=== PATIENT | male | born 1935 | race Caucasian/White ===

== ENCOUNTER → 2017-04-18 | Outpatient (CLI) | payer MEDICARE, OTHER ==
[~2017-04-18] MED LIST: ASPI1TAB57 PO; BENA25CA4 PO; BENZ100 PO; CELE100C PO; DOCU100C15 PO; GABA300C5 PO; HYDR-3111 PO; PROS5TAB PO; PROT40TA PO; ROBA500T PO; ROSU20 PO; TRAM50 PO; TRAZ100T10 PO; ZOLP5TAB3 PO
[2017-04-18 08:51] LABS: HEMATOCRIT 38.7 % (39.0-51.0); HEMOGLOBIN 13.2 GM/DL (13.0-17.0); MEAN CELL VOLUME 89.8 FL (80.0-100.0); MEAN CORPUSCULAR HEMOGLOBIN 30.6 PG (27.0-34.0); MEAN CORPUSCULAR HGB CONC 34.1 % (32.0-36.0); MEAN PLATELET VOLUME 6.9 FL (7.0-11.0); PLATELET COUNT 170 TH/MM3 (150-450); RED BLOOD COUNT 4.31 MIL/MM3 (4.50-5.90); RED CELL DISTRIBUTION WIDTH 14.4 % (11.6-17.2); WHITE BLOOD COUNT 4.7 TH/MM3 (4.0-11.0)
[2017-04-18 09:03] LABS: INTERNATIONAL NORMALIZED RATIO 1.1 RATIO; PROTHROMBIN TIME - PATIENT 11.3 SEC (9.8-11.6)
[2017-04-18 09:10] LABS: BILIRUBIN, URINE NEG (NEG); BLOOD, URINE NEG (NEG); GLUCOSE,URINE NEG (NEG); KETONE, URINE NEG (NEG); MUCUS URINE FEW /lpf (OCC); NITRITE,URINE NEG (NEG); URINE COLOR YELLOW (YELLW/STRAW); URINE LEUKOCYTE ESTERASE NEG (NEG)
[2017-04-18 09:12] LABS: CALCIUM 9.6 MG/DL (8.5-10.1); CREATININE 0.83 MG/DL (0.60-1.30)
--- NOTE | 2017-04-18 13:59 | EKG ---
Date Performed: 04/18/2017 Time Performed: 08:37:14 PTAGE: 81 years EKG: SINUS BRADYCARDIA MARKED LEFT AXIS DEVIATION PATTERN CONSISTENT WITH PULMONARY DISEASE ABNO RMAL ECG NO PREVIOUS TRACING 04/18/2017 0837 DOCTOR: Lakshmi Mendoza Interpretating Date/Time 04/18/2017 13:58:38
== END ==
LOC: CPRE 08:09
PROVIDERS: ATTEND Orthopaedic Surgery
DX: Z01.812 Encounter for preprocedural laboratory examination (principal); Z01.810 Encounter for preprocedural cardiovascular examination; M17.12 Unilateral primary osteoarthritis, left knee; M79.609 Pain in unspecified limb; R94.31 Abnormal electrocardiogram [ECG] [EKG]; Z96.652 Presence of left artificial knee joint
CPT/HCPCS: 36415; 80048; 81001; 85027; 85610; 85730; 93005

== ENCOUNTER 2017-05-05 05:49 | Day surgery (SDC) | payer MEDICARE, OTHER ==
[~2017-05-05] VITALS: Ht 175.3 cm; Wt 81.3 kg
[2017-05-05] MEDS ORDERED: FAT EMULSION 20% INJ 0 ML ONE (06:00)
[2017-05-05] MEDS ORDERED: ceFAZolin 2 GM PREMIX 0 ML ONE (06:06)
[2017-05-05] MEDS ORDERED: GENTAMICIN SULFATE 80 MG/2 ML VIAL ONE (06:06)
[2017-05-05] MEDS ORDERED: POVIDONE IODINE 5% (ANTISEPSIS KIT) 4 APPLICATIONS EACH NARE PRN (06:15)
[2017-05-05] MEDS ORDERED: CHLORHEXIDINE GLUCONATE 2 % 1 PACK (2 CLOTHS) TOPICAL PRN (06:15)
[2017-05-05] MEDS ORDERED: SODIUM CHLORID 0.9% 500 ML IV PRN (06:15)
[2017-05-05] MEDS ORDERED: LACTATED RINGER'S 1000 ML IV PRN (06:15)
[2017-05-05] MEDS ORDERED: VANCOMYCIN 1000 MG/NS 250 ML (for <70 kg) IV SCH ×2 (06:30)
[2017-05-05] MEDS ORDERED: CHLORHEXIDINE GLUCONATE 4% SOLN 120 ML BTL TOPICAL SCH (06:30)
[2017-05-05] MEDS ORDERED: ceFAZolin 2 GM PREMIX 50 ML IV SCH (06:30)
[2017-05-05] MEDS ORDERED: EXPAREL PERI-ARTICULAR INJECTION (TOTAL VOL. 100 ML) P-ARTICULR SCH ×2 (07:00)
[2017-05-05] MEDS ORDERED: SODIUM CHLORIDE 0.9% IV SCH ×2 (07:00→10:00)
[2017-05-05] MEDS ORDERED: TRANEXAMIC ACID IV SCH ×2 (07:00→10:00)
== END 2017-05-05 06:38 | disposition home or self-care (01) ==
LOC: HSDI 05:49 → UNDOADMIN 05:49 → HSDC 05:49 → EDSTATUS 10:00 → EDUNIT# 10:00
PROVIDERS: ATTEND Orthopaedic Surgery
DX: M25.562 Pain in left knee (principal); Z96.652 Presence of left artificial knee joint; Z53.8 Procedure and treatment not carried out for other reasons; S80.212A Abrasion, left knee, initial encounter
CPT/HCPCS: 86850; 86900; 86901; C9290; G0463; J1580; 99211; J0690

== ENCOUNTER 2017-05-12 05:12 | Inpatient (IN) | payer MEDICARE, OTHER ==
[~2017-05-12] VITALS: Ht 171.4 cm; Wt 82.1 kg
[~2017-05-12 05:12] MED LIST changes: -BENZ100 PO
[2017-05-12] MEDS ORDERED: CHLORHEXIDINE GLUCONATE 2 % 1 PACK (2 CLOTHS) TOPICAL PRN (05:30)
[2017-05-12] MEDS ORDERED: METOPROLOL TARTRATE 25 MG TAB PO PRN (05:30)
[2017-05-12] MEDS ORDERED: TRANEXAMIC ACID INJ 825 MG in SODIUM CHLORIDE 0.9% INJ 100 ML IV SCH ×5 (05:30→10:00)
[2017-05-12] MEDS ORDERED: POVIDONE IODINE 5% (ANTISEPSIS KIT) 4 APPLICATIONS EACH NARE PRN (05:30)
[2017-05-12] MEDS ORDERED: LACTATED RINGER'S 1000 ML IV PRN (05:30)
[2017-05-12] MEDS ORDERED: CHLORHEXIDINE GLUCONATE 4% SOLN 120 ML BTL TOPICAL SCH (05:30)
[2017-05-12] MEDS ORDERED: ceFAZolin 2 GM PREMIX 50 ML IV SCH (05:30)
[2017-05-12] MEDS ORDERED: EXPAREL PERI-ARTICULAR INJECTION (TOTAL VOL. 100 ML) P-ARTICULR SCH ×2 (05:30)
[2017-05-12] MEDS ORDERED: SODIUM CHLORID 0.9% 500 ML IV PRN (05:30)
[2017-05-12] MEDS ORDERED: TAMS5CAP PO (05:39)
[2017-05-12] MEDS ORDERED: BUPIVACAINE PF 0.75% DEX-WATER INJ 2 ML AMP ONE (06:05)
[2017-05-12] MEDS ORDERED: FAT EMULSION 20% INJ 0 ML ONE (06:14)
[2017-05-12] MEDS ORDERED: GENTAMICIN SULFATE 80 MG/2 ML VIAL ONE (06:15)
[2017-05-12] MEDS ORDERED: MIDAZOLAM HCL 2 MG/2 ML VIAL ONE (06:21)
[2017-05-12] MEDS ORDERED: PROPOFOL 500 MG/50 ML INJ 100 ML ONE (06:21)
[2017-05-12] MEDS ORDERED: BUPIVACAINE LIPOSOME PF 1.3% 20 ML VIAL ONE (06:22)
[2017-05-12] MEDS ORDERED: Post-op Orders (for Pharmacy) XX ONE (07:00)
[2017-05-12] MEDS ORDERED: SODIUM CHLORIDE 0.9% IV SCH (07:00)
[2017-05-12] MEDS ORDERED: TRANEXAMIC ACID IV SCH (07:00)
[2017-05-12] MEDS ORDERED: ONDANSETRON HCL 4 MG/2 ML VIAL IVP PRN (07:00)
[2017-05-12] MEDS ORDERED: MAGNESIUM HYDROXIDE SUSP 30 ML CUP PO PRN (07:00)
[2017-05-12] MEDS: KETOROLAC TROMETHAMINE 30 MG/ML (IVP) VIAL IVP SCH ×3 (07:00→21:00)
[2017-05-12] MEDS ORDERED: ACETAMINOPHEN/HYDROcodone 325 MG/7.5 MG TAB PO PRN (07:00)
[2017-05-12] MEDS ORDERED: DOCUSATE SODIUM 100 MG CAP PO SCH (09:00)
--- NOTE | 2017-05-12 10:09 | PD.OP ---
Operative Report Date of Surgery: May 12, 2017 Preoperative Diagnosis: (1) Primary osteoarthritis of left knee (2) Prosthetic knee implant failure Postoperative Diagnosis: (1) Primary osteoarthritis of left knee (2) Prosthetic knee implant failure Procedure: Revision left [place] partial medial knee arthroplasty to total knee arthroplasty using Nanette Triathlon prosthesis (uncemented). Anesthesia: Spinal with supplemental adductor canal block regional and local with Exparel Surgeon: Red Ruvalcaba M.D. [place] Foreman(s): MITA Hodge Operation and Findings: Indications and Findings: This 81-year-old man had a left partial knee replacement in 2010 in [place]. He did relatively well initially but subsequently has had progressive worsening with pain particularly in the lateral compartment but also in the medial compartment. He has not responded to conservative measures including nonsteroidal anti-inflammatory agents, analgesics, exercise, physical therapy and ambulatory aids. His ambulation tolerance is less than a mile. He has difficulty with activities of daily living. He has difficulty ascending and descending stairs or standing from a seated position. Physical findings showed a medial incisional scar with there being tenderness and crepitation laterally, medially and in the patellofemoral joint. X-rays showed significant degenerative change in the patellofemoral lateral compartments with a Biomet [place] medial partial replacement. There may have been slight loosening and the tibial component based on radiographic findings. Operative findings: The fluid within the joint was clear and consistent with healthy joint fluid. The medial compartment was replaced with a Biomet [place] prosthesis. The lateral compartment was down to bone on bone with osteophytes and eburnation. The patellofemoral compartment had large osteophytes and loss of articular cartilage with some exposed subchondral bone. The prosthesis used was a Nanette Triathlon prosthesis. The femur was a size 5, cruciate retaining, uncemented. The tibial baseplate was a size 5 Tritanium with a 11 mm X3 polyethylene cruciate retaining spacer. The patella was a size 35 asymmetric uncemented Tritanium backed. The patient was brought to the clean-air operating suite after an adductor canal block regional had been performed. A spinal anesthetic was administered. The position was supine with a small bolster under the hip on the operative side. A pneumatic tourniquet was applied to the upper thigh. The lower extremity was then prepped with alcohol, Hibiclens and ChloraPrep and draped in the usual manner with the knee draped free. An appropriate timeout procedure was carried out. An incision was made from about 3 fingerbreadths above the superior medial pole of patella down the prior incision, following it to the tibial tubercle on the medial side. The incision was deepened through the subcutaneous tissue to the retinacular structures which were exposed medially and laterally. A medial retinacular incision was then made from the superior middle pole of patella down the tibial tubercle and up into the quadriceps tendon splitting it longitudinally and the medial one third. The patella was reflected. The infrapatellar fat pad was debulked. The anterior cruciate ligament was excised. Medial and lateral meniscectomies were initiated. A fenestration was made in the distal femur for the intramedullary referencing guide. . The distal femoral cutting guide and jig were then assembled for a 5, 8 mm cut. When this was in position, the cutting block was stabilized with pins. The jig was removed. Using thin, flexible osteotomes the femoral component of the partial knee replacement was slowly and carefully loosened. Using stacked osteotomes, the femoral component was then carefully removed. Cement was removed also from the femur. The tibial spacer was removed. Thin flexible osteotomes were then used for removal of the tibial component. Stacked osteotomes were also used to facilitate this. Previously placed cement was removed from the tibia and the femur. The distal femoral cut was then completed with the oscillating saw. The sizing guide was then positioned in place along [place] line and the epicondylar axis and stabilized with pins. The femoral size was then determined with the sizing guide. The 4-in-1 cutting block was then positioned in place. Anterior and posterior cuts were made followed by posterior and anterior chamfer cuts taking care to prevent injury to ligamentous structures. Osteophytes were then trimmed from the distal femur. A bone plug was then placed into the fenestration of the distal femur. The proximal tibia was then exposed. The lateral meniscectomy was completed. The extramedullary proximal tibial cutting guide was then positioned in place and stabilized for rotation. The depth of cut was then verified with a stylus referencing from the lateral side initially and then checked on the medial side. The cutting block was stabilized with pins. The jig was removed. The depth of cut was then verified and adjusted appropriately with the use of the spacer block. The proximal tibial cut was then made with the oscillating saw taking care to prevent injury to neurovascular and ligamentous structures. Proximal tibial bone was removed. After removal of the remnants of cement from the tibia, the defect in the tibia was packed with morselized bone graft from the remainder of the cuts. This was impacted into place and seated appropriately. There was at least 80-85% [place] bone. Local anesthetic was administered with Exparel in the posterior capsule. The tibial baseplate trial was then positioned in place. After verifying the appropriate size, the base plate trial was positioned in place along with its spacer. The trial femoral component was then impacted into place. The alignment was checked. The trial tibial baseplate was then pinned in place on the tibia. Attention was directed to the patella. The patella drill guide was positioned in place for the appropriate sized patella. Patellar drilling was then carried out. The trial patella was positioned in place. The knee was taken through a range of motion which was easily 0 extension to 140 by gravity and 145 with pressure. The patella trial was removed. The femoral drill holes were made. The femoral trial prosthesis was removed. The tibial spacer was removed. The tibial punch was impacted through the proximal tibial punch guide. This was all removed followed by placement of the tibial drill guide. The tibial drill holes were then made. The guide was removed. The cut ends of bone were then cleaned with pulse lavage, taking care to protect the bone grafts. The tibial baseplate was then impacted into place and seated appropriately. The spacer was inserted. The the femoral component was then impacted into place and seated appropriately. The patella component was then seated with the patellar vice and tightened appropriately. The knee was taken through a range of motion which was comparable to the previous range of motion with excellent stability in flexion and extension and appropriate patellofemoral tracking. The remainder of the Exparel was then injected throughout the knee as a local anesthetic. Drains were brought out the superior lateral aspect of the suprapatellar pouch. Wound closure then commenced using 0 Vicryl interrupted [id number] sutures for the capsular and fascial structures, 2-0 Vicryl interrupted simple sutures with buried knots for the subcutaneous tissues and 4- 0 Monocryl, tenuous subcuticular closure for the skin. The wound was then dressed with Dermabond Prieno followed by a dry sterile dressing. Sterile soft roll with a cooling pad and [place] bandage from the base of the toes to mid thigh were then applied. Patient was then transferred from the operating room to the recovery room in satisfactory condition having tolerated procedure well. Counts are correct. Specimens: Synovial fluid for culture and sensitivity and Gram stain. Estimated blood loss: 250 mL Ady Ruvalcaba MD ([place]) May 12, 2017 10:09
--- NOTE | 2017-05-12 10:12 | HHI.FF ---
Face to Face Verification Diagnosis: (1) Status post total left knee replacement Physical Therapy Gait training Knee: Total knee, Protocol: Left, Gait training, Full weight bearing Left LE Weight Bearing: WB as tolerated Left LE Range of Motion: Active ROM (, active-assisted and passive range of motion. Range of motion goal is 0 extension to 135 of flexion. Range of motion in the operating room was 0 extension to 140 of flexion.) Nursing Nursing: Dressing changes Dressing Changes: Daily dressing change, Coverderm/Primapore I have seen patient Esteban Good on 05/12/17. My clinical findings support the need for the requested home health care services because: Ltd mobility - disease progression Limited ability to care for self High risk of falls I certify that my clinical findings support that this patient is homebound because: Post-op weakness Unsteady gait/balance Unsafe to leave home unassisted Ady Ruvalcaba MD ([place]) May 12, 2017 10:12
[2017-05-12] MEDS ORDERED: ECASA81 PO (10:16)
[2017-05-12] MEDS ORDERED: HYDR-3580 PO (10:16)
[2017-05-12] MEDS ORDERED: DO NOT ADM ANY ANTICOAGULANT DRUGS PRN (10:30)
[2017-05-12] MEDS ORDERED: *morphine SULFATE 4 MG/ML PERIprocedure ONLY ONE ×2 (10:53→11:59)
[2017-05-12] MEDS: LACTATED RINGER'S 1000 ML INJ 1,000 ML IV SCH (11:00)
--- NOTE | 2017-05-12 11:46 | RADRPT ---
EXAM DATE/TIME: 05/12/2017 10:38 [facility] COMPARISON: No previous studies available for comparison. INDICATIONS : Post op left knee surgery MEDICAL HISTORY : None. SURGICAL HISTORY : None. ENCOUNTER: Initial ACUITY: 1 day PAIN SCORE: Non-responsive. LOCATION: Left knee FINDINGS: AP and lateral views of the knee following arthroplasty reveals a prosthesis in anatomic alignment. F racture is not appreciated. Surgical drain is evident CONCLUSION: Status post total knee arthroplasty. Dannie Villalobos MD FACR Board Certified Radiologist. This report was verified electronically.
[2017-05-12] MEDS ORDERED: ePHEDrine/NS 25 MG/5 ML SYRINGE IV ONE (12:00)
[2017-05-12] MEDS ORDERED: LIDOCAINE HCL 1% PF 5 ML SYRINGE OTHER ONE (12:00)
[2017-05-12] MEDS ORDERED: PROPOFOL 200 MG/20 ML AMP IV ONE (12:00)
[2017-05-12] MEDS ORDERED: LACTATED RINGER'S 1000 ML INJ 1,000 ML IV ONE (12:00)
[2017-05-12] MEDS: MORPHINE SULFATE 4 MG/ML INJ IV PUSH PRN ×2 (13:40→16:27)
[2017-05-12 20:00] VITALS: BP 146/75; PULSE 67; RESP 21; TEMP 99.9; O2SAT 94
[2017-05-12] MEDS: ASPIRIN EC 81 MG TABEC PO SCH (21:00)
[2017-05-12] MEDS: diphenhydrAMINE HCL 25 MG CAP PO SCH (21:00)
[2017-05-12] MEDS: traZODone HCL 100 MG TAB PO SCH (21:00)
[2017-05-12] MEDS: ACETAMINOPHEN/HYDROcodone 325 MG/7.5 MG TAB PO PRN (21:53)
[2017-05-12] MEDS: METHOCARBAMOL 500 MG TAB PO SCH (21:57)
[2017-05-12] MEDS: GABAPENTIN 300 MG CAP PO SCH (21:57)
[2017-05-12] MEDS: TAMSULOSIN HCL 0.4 MG CAP PO SCH (21:58)
[2017-05-13] VITALS (7 sets, daily range): BP systolic 117–160; BP diastolic 62–72; PULSE 58–76; RESP 18–20; TEMP 96.9–99.4; O2SAT 92–96
[2017-05-13] MEDS: ZOLPIDEM TARTRATE 5 MG TAB PO PRN (00:10)
[2017-05-13] MEDS: MORPHINE SULFATE 4 MG/ML INJ IV PUSH PRN ×2 (00:21→16:20)
[2017-05-13] MEDS: KETOROLAC TROMETHAMINE 30 MG/ML (IVP) VIAL IVP SCH ×4 (01:35→19:30)
[2017-05-13 04:53] LABS: HEMATOCRIT 30.5 % (39.0-51.0); HEMOGLOBIN 10.4 GM/DL (13.0-17.0)
[2017-05-13] MEDS: ACETAMINOPHEN/HYDROcodone 325 MG/7.5 MG TAB PO PRN ×2 (05:52→11:13)
--- NOTE | 2017-05-13 06:19 | PD.ORT.PN ---
Subjective Post Op Day #: 1 Subjective Remarks He is doing well. He has some pain in the popliteal area but otherwise has very little pain. He indicates that he will probably want to go to a [facility] facility. This will depend upon how he feels at the end of the requisite 3 days. Range of Motion -10 extension to 90 of flexion. Distance Walked 28 feet with PT. Objective Vitals Vital Signs Date Time Temp Pulse Resp B/P (MAP) Pulse Ox O2 Delivery O2 Flow Rate FiO2 05/13/17 00:00 99.4 69 20 131/64 (86) 94 05/12/17 20:00 99.9 67 21 146/75 (98) 94 05/12/17 18:50 97.5 57 16 121/65 (83) 96 Room Air 05/12/17 18:00 58 16 120/63 (82) 95 Room Air 05/12/17 17:00 60 16 119/60 (79) 93 Room Air 05/12/17 16:32 15 05/12/17 16:00 59 16 118/59 (78) 92 Room Air 05/12/17 15:00 58 16 127/59 (81) 100 Nasal Cannula 2 05/12/17 14:00 53 16 121/62 (81) 99 Nasal Cannula 2 05/12/17 14:00 15 05/12/17 13:00 52 16 146/68 (94) 98 Nasal Cannula 2 05/12/17 12:00 97.5 50 16 145/69 (94) 98 Nasal Cannula 2 05/12/17 11:45 48 15 140/67 (91) 96 Nasal Cannula 2 05/12/17 11:30 49 15 143/69 (93) 95 Nasal Cannula 2 05/12/17 11:15 47 15 147/72 (97) 95 Nasal Cannula 2 05/12/17 11:00 44 15 145/79 (101) 95 Nasal Cannula 2 05/12/17 10:45 45 15 144/73 (96) 100 Nasal Cannula 3 05/12/17 10:30 48 15 140/66 (90) 99 Nasal Cannula 3 05/12/17 10:20 97.8 47 20 139/66 (90) 98 Nasal Cannula 3 I/O 05/12/17 05/12/17 05/12/17 05/13/17 05/13/17 05/13/17 07:00 15:00 23:00 07:00 15:00 23:00 Intake Total 1858.25 ml 1025 ml Output Total 250 ml 1225 ml Balance 1608.25 ml -200 ml Intake Oral 480 ml IV Total 108.25 ml 545 ml Other 1750 ml Output Urine Total 1025 ml Drainage Total 200 ml Estimated Blood Loss 250 ml # Bowel Movements 0 Result Diagram: 05/13/17 0410 Imaging Last 24 hours Impressions Knee X-Ray 05/12/17 0658 Signed Impressions: Service Date/Time: Friday, May 12, 2017 10:38 - CONCLUSION: Status post total knee arthroplasty. Dannie Villalobos MD Objective Remarks He is resting comfortably, supine in bed, in the [facility]. The neurovascular status is intact. The dressing is dry and intact. Assessment & Plan Ortho Post Op Day #: 1 Problem List: (1) Status post total left knee replacement ICD Codes: Z96.652 - Presence of left artificial knee joint Plan: Continue postop care and PT. Assessment and Plan Condition: Good. Orthopedically stable. DVT prophylaxis: Sequentials, POLINA stockings, aspirin 81 mg twice daily. Discharge plans: Home with home health care versus a [facility] facility for rehabilitation. An appointment was scheduled through the office. Prescriptions: [place] 7.5/325 [] Ady Ruvalcaba MD ([place]) May 13, 2017 06:19
--- NOTE | 2017-05-13 06:27 | HHI.DS ---
Discharge Summary Admission Date May 12, 2017 at 06:59 Discharge Date: May 14, 2017 Admitting Diagnosis Progressive osteoarthritis, lateral and patellofemoral compartments, left knee after prior partial knee replacement. Diagnosis: (1) Status post total left knee replacement Diagnosis: Principal ICD Codes: Z96.652 - Presence of left artificial knee joint (2) Primary osteoarthritis of left knee Diagnosis: Principal ICD Codes: M17.12 - Unilateral primary osteoarthritis, left knee Status: Resolved (3) Prosthetic knee implant failure Diagnosis: Principal ICD Codes: T84.018A - Broken internal joint prosthesis, other site, initial encounter; Z96.659 - Presence of unspecified artificial knee joint Status: Resolved Procedures Revision of left partial knee replacement (Biomet [place]) to total knee replacement with Tina Triathlon prosthesis (uncemented) on 05/12/2017. Brief History This is a 81 year old male patient previously had a partial knee replacement on the left in [place]. Subsequent to this, he did well but then had progressive worsening of pain such that his ambulation tolerance and activities of daily living were markedly deteriorating progressively. He had pain with stairs. He had pain standing from a seated position. He had difficulty walking any distance. Physical findings showed crepitation on range of motion with tenderness in the medial and lateral compartments. X-ray showed severe arthritis in the lateral and patellofemoral compartments with a partial knee replacement in place. There was some areas that appeared to be loosening in the tibial component. CBC/BMP: 05/13/17 0410 Significant Findings Laboratory Tests Test 05/13/17 04:10 Hemoglobin 10.4 GM/DL (13.0-17.0) Hematocrit 30.5 % (39.0-51.0) Imaging Last 72 hours Impressions Knee X-Ray 05/12/17 0658 Signed Impressions: Service Date/Time: Friday, May 12, 2017 10:38 - CONCLUSION: Status post total knee arthroplasty. Dannie Villalobos MD PE at Discharge He is resting comfortably, supine in bed, in the [facility]. The neurovascular status is intact. The dressing is dry and intact. Hospital Course The patient was admitted as noted above. The above noted operative procedure was carried out that day. Preoperatively prophylactic antibiotics were administered Ancef according to protocol. These were continued postoperatively. The patient also received tranexamic acid to help with hemostasis according to protocol. In the postanesthesia care unit a continuous passive motion device was initiated. Also initiated were mechanical methods of DVT prophylaxis in the form of POLINA stockings and sequentials. Physical therapy was initiated on the day of surgery. He was able to walk 28 feet and had a range of motion from -10 extension to 90 of flexion. On postoperative day #1 physical therapy continued. The use of the continuous passive motion device continued. DVT prophylaxis with aspirin 81 mg twice daily was initiated at this time. The patient continued physical therapy throughout the hospitalization. The distance walked and range of motion improved throughout the hospitalization. He was up to 200 feet on postoperative day 2. His range of motion was 0 extension to 100 of flexion. The patient was discharged on postoperative day 2 with the disposition being to home with home health care. An appointment for follow-up was made prior to admission. Pt Condition on Discharge: Good Discharge Disposition: Discharge to SNF Discharge Instructions Diet Instructions: As Tolerated, No Restrictions Activities You Can Perform: Full Weight Bearing, Shower Only-No Bath Activities to Avoid: Lifting/Bending, Strenuous Activity, Bathing, Driving Follow up Referrals: Orthopedics with Ady Ruvalcaba MD ([place]) New Medications: Bedside Commode (Bedside Commode) 1 Mis Mis EA .XX DIRECTED, #1 Walker with Front Wheels (Walker with Front Wheels) 1 Mis Mis EA .XX DIRECTED, #[address] (Aspirin DR) 81 Mg Tabdr 81 MG PO BID for Prevent Blood Clot for 30 Days, #60 TAB Hydrocodone/Acetaminophen (Hydrocodone-Acetamin 7.5-325) 7.5 Mg-325 Mg Tablet 1 TAB PO Q4H PRN for PAIN SCALE 1 TO 10, #30 TAB Continued Medications: Celecoxib (Celebrex) 100 Mg Cap 100 MG PO DAILY for Pain Management, CAP 0 Refills Diphenhydramine HCl (Benadryl Allergy) 25 Mg Cap 25 CAP PO HS for Insomnia Docusate Sodium (Docusate Sodium) 100 Mg Cap 100 MG PO DAILY for Prevent Constipation, #60 CAP 0 Refills Finasteride (Proscar) 5 Mg Tab 5 MG PO DAILY for Manage Prostate Problems, #30 TAB 0 Refills Do not crush. Gabapentin (Gabapentin) 300 Mg Cap 300 MG PO HS, #30 CAP 0 Refills Hydrocodone-Acetaminophen (Vicodin) 5-300 Mg Tab 1 TAB PO Q6H PRN for PAIN, TAB 0 Refills Methocarbamol (Robaxin) 500 Mg Tab 500 MG PO BID for Muscle Spasm, TAB 0 Refills Pantoprazole (Protonix) 40 Mg Tab 40 MG PO DAILY for Reflux, #30 TAB 0 Refills Rosuvastatin (Crestor) 20 Mg Tab 20 MG PO DAILY for Cholesterol Management, #30 TAB 0 Refills Tamsulosin (Flomax) 0.4 Mg Cap 0.8 MG PO HS for Manage Prostate Problems, #60 CAP 0 Refills Tramadol (Ultram) 50 Mg Tab 100 MG PO HS PRN for PAIN, TAB 0 Refills Trazodone (Trazodone) 100 Mg Tablet 100 MG PO HS for Control Depression, #30 TAB 0 Refills Zolpidem (Zolpidem) 5 Mg Tab 5 MG PO HS PRN for INSOMNIA, TAB 0 Refills Discontinued Medications: Aspirin DR (Aspirin 81) 81 Mg Tabdr 81 MG PO DAILY, TAB 0 Refills Ady Ruvalcaba MD (Charles) May 13, 2017 06:27
[2017-05-13] MEDS: LACTATED RINGER'S 1000 ML INJ 1,000 ML IV SCH ×2 (07:58→20:28)
[2017-05-13] MEDS: ASPIRIN EC 81 MG TABEC PO SCH ×3 (08:24→21:18)
[2017-05-13] MEDS: METHOCARBAMOL 500 MG TAB PO SCH ×2 (08:24→21:18)
[2017-05-13] MEDS: FINASTERIDE 5 MG TAB PO SCH ×2 (08:24→09:00)
[2017-05-13] MEDS: PANTOPRAZOLE SOD 40 MG DELAYED RELEASE TAB PO SCH ×2 (08:24→09:00)
[2017-05-13] MEDS: ATORVASTATIN 40 MG TAB PO SCH ×2 (08:24→09:00)
--- NOTE | 2017-05-13 08:48 | PD.CONS ---
HPI Service [facility] Hospitalists Consult Requested By Orthopedic surgery Reason for Consult Medical management Primary Care Physician [facility] Diagnoses: History of Present Illness Mr. Good is a pleasant 81-year-old male with a history of bilateral knee surgery, right arm surgery who underwent left total knee arthroplasty on 2017. Despite using NSAIDs, Muscle relaxers, pain medications - patient continued to have significant left knee pain which led to this surgical intervention. At the time of this interview, patient is resting in bed. Pain well controlled. No acute concerns. No chest pain, SOB, fever, chills. No abdominal pain, N/V, diarrhea. No changes in bowel or bladder habits. Review of Systems Except as stated in HPI: all other systems reviewed are Neg Past Family Social History Allergies: Coded Allergies: No Known Allergies (Unverified , 05/12/17) Past Medical History Knee osteoarthritis, hyperlipidemia, BPH Past Surgical History Multiple left arm surgery, 2 hernia operations, left shoulder surgery, back surgery, foot surgery Reported Medications Current Medications Medications (Trade) Dose Ordered Sig/David Route Start Time Stop Time Status Last Admin Lactated Ringer's 1,000 ml @ 30 mls/hr Q24H PRN IV 05/12/17 05:30 05/15/17 05:29 05/12/17 05:40 Sodium Chloride 500 ml @ 30 mls/hr [id number] PRN IV 05/12/17 05:30 05/15/17 05:29 (Lopressor) 25 mg [facility] PRN PO 05/12/17 05:30 05/15/17 05:29 (Betadine 5% Antisepsis Kit) 1 applic [facility] PRN EACH NARE 05/12/17 05:30 05/15/17 05:29 05/12/17 05:55 (Chlorhexidine 2% Cloth) 3 pack [facility] PRN TOPICAL 05/12/17 05:30 05/15/17 05:29 05/12/17 05:20 (Hibiclens 4% Top Soln) 1 applic ONCE TOPICAL 05/12/17 05:30 05/15/17 05:29 05/12/17 05:55 Cefazolin Sodium/ Dextrose 50 ml @ 100 mls/hr [facility] IV 05/12/17 05:30 05/15/17 05:29 05/12/17 07:58 (CeleBREX) 100 mg DAILY PO 05/12/17 09:00 05/13/17 09:00 (Benadryl) 625 mg HS PO 05/12/17 21:00 (Proscar) 5 mg DAILY PO 05/12/17 09:00 05/13/17 09:00 (Neurontin) 300 mg HS PO 05/12/17 21:00 05/13/17 21:18 (Robaxin) 500 mg BID PO 05/12/17 09:00 05/13/17 21:18 (Protonix) 40 mg DAILY PO 05/12/17 09:00 05/13/17 09:00 (Flomax) 0.8 mg HS PO 05/12/17 21:00 05/13/17 21:18 (Lipitor) 40 mg DAILY PO 05/12/17 09:00 05/13/17 09:00 (Desyrel) 100 mg HS PO 05/12/17 21:00 Lactated Ringer's 1,000 ml @ 80 mls/hr [id number] IV 05/12/17 06:58 05/12/17 11:00 (Morphine Inj) 4 mg Q3H PRN IV PUSH 05/12/17 07:00 05/13/17 16:20 ([place] 7.5-325 Mg) 1 tab Q4H PRN PO 05/12/17 07:00 ([place] 7.5-325 Mg) 2 tab Q4H PRN PO 05/12/17 07:00 05/13/17 11:13 (Toradol Inj) 15 mg Q6H IVP 05/12/17 07:00 05/14/17 01:01 05/13/17 19:30 (Zofran Inj) 4 mg Q6H PRN IVP 05/12/17 07:00 (Colace) 100 mg BID PO 05/13/17 21:00 05/13/17 21:18 (Ambien) 5 mg HS PRN PO 05/12/17 07:00 05/13/17 00:10 (Milk Of Magnesia Liq) 30 ml DAILY PRN PO 05/12/17 07:00 (Ecotrin Ec) 81 mg BID PO 05/12/17 09:00 05/13/17 21:18 Family History Mother had breast cancer, brother had lung cancer Social History Patient denies using tobacco, alcohol, illicit drugs. Physical Exam Vital Signs Vital Signs Date Time Temp Pulse Resp B/P (MAP) Pulse Ox O2 Delivery O2 Flow Rate FiO2 05/13/17 04:00 96.9 58 18 117/62 (80) 96 05/13/17 00:00 99.4 69 20 131/64 (86) 94 05/12/17 20:00 99.9 67 21 146/75 (98) 94 05/12/17 18:50 97.5 57 16 121/65 (83) 96 Room Air 05/12/17 18:00 58 16 120/63 (82) 95 Room Air 05/12/17 17:00 60 16 119/60 (79) 93 Room Air 05/12/17 16:32 15 05/12/17 16:00 59 16 118/59 (78) 92 Room Air 05/12/17 15:00 58 16 127/59 (81) 100 Nasal Cannula 2 05/12/17 14:00 53 16 121/62 (81) 99 Nasal Cannula 2 05/12/17 14:00 15 05/12/17 13:00 52 16 146/68 (94) 98 Nasal Cannula 2 05/12/17 12:00 97.5 50 16 145/69 (94) 98 Nasal Cannula 2 05/12/17 11:45 48 15 140/67 (91) 96 Nasal Cannula 2 05/12/17 11:30 49 15 143/69 (93) 95 Nasal Cannula 2 05/12/17 11:15 47 15 147/72 (97) 95 Nasal Cannula 2 05/12/17 11:00 44 15 145/79 (101) 95 Nasal Cannula 2 05/12/17 10:45 45 15 144/73 (96) 100 Nasal Cannula 3 05/12/17 10:30 48 15 140/66 (90) 99 Nasal Cannula 3 05/12/17 10:20 97.8 47 20 139/66 (90) 98 Nasal Cannula 3 Physical Exam GENERAL: This is a well-nourished, well-developed patient, in no apparent distress. SKIN: No rashes, ecchymoses or lesions. Warm and dry. HEAD: Atraumatic. Normocephalic. No temporal or scalp tenderness. EYES: Pupils equal round and reactive. No injection or drainage. ENT: Nose without bleeding, purulent drainage or septal hematoma. Airway patent. NECK: Trachea midline. No lymphadenopathy. Supple, nontender, no meningeal signs. CARDIOVASCULAR: Regular rate and rhythm without murmurs, gallops, or rubs. No JVD. RESPIRATORY: Clear to auscultation. Breath sounds equal bilaterally. No wheezes , rales, or rhonchi. GASTROINTESTINAL: Abdomen soft, non-tender, nondistended. No guarding. MUSCULOSKELETAL: Extremities without clubbing, cyanosis, or edema. Status post left knee arthroplasty. Limited range of motion of the right upper extremity NEUROLOGICAL: Awake and alert. Cranial nerves II through XII intact. No focal neurological deficits. Normal speech. Laboratory Laboratory Tests Test 05/13/17 04:10 Hemoglobin 10.4 Hematocrit 30.5 Date/Time Source Procedure Growth Status 05/12/17 07:25 Wound Knee Acid Fast Stain Pending Received 05/12/17 07:25 Wound Knee Mycobacterial Culture Pending Received Result Diagram: 05/13/17 0410 Imaging Last Impressions Knee X-Ray 05/12/17 0658 Signed Impressions: Service Date/Time: Friday, May 12, 2017 10:38 - CONCLUSION: Status post total knee arthroplasty. Dannie Villalobos MD Assessment and Plan Assessment and Plan Mr. Good is a pleasant 81-year-old male with a history bilateral knee osteoarthritis who underwent left total knee arthroplasty on 05/12/2017. -Left knee osteoarthritis - Hx of previous surgery. Patient underwent left TKA on 05/12/2017. - Continue Pain meds [place], Toradol, Morphine. - Also continue Robaxin, Gabapentin. - Bowel regimen in place. - BPH - continue Finasteride, Tamsulosin. - Hyperlipidemia - continue statin. Full code. Aspirin BID. Thank you for the consult. Will continue to follow this patient with you. Elen Little DO May 13, 2017 08:48
[2017-05-13] MEDS: CELECOXIB 100 MG CAP PO SCH ×2 (09:00→09:16)
[2017-05-13] MEDS: traZODone HCL 100 MG TAB PO SCH (21:00)
[2017-05-13] MEDS: diphenhydrAMINE HCL 25 MG CAP PO SCH (21:00)
[2017-05-13] MEDS: TAMSULOSIN HCL 0.4 MG CAP PO SCH (21:18)
[2017-05-13] MEDS: DOCUSATE SODIUM 100 MG CAP PO SCH (21:18)
[2017-05-13] MEDS: GABAPENTIN 300 MG CAP PO SCH (21:18)
[2017-05-14] MEDS: ZOLPIDEM TARTRATE 5 MG TAB PO PRN (00:50)
[2017-05-14] MEDS: ACETAMINOPHEN/HYDROcodone 325 MG/7.5 MG TAB PO PRN ×2 (00:51→07:32)
[2017-05-14] MEDS: KETOROLAC TROMETHAMINE 30 MG/ML (IVP) VIAL IVP SCH (00:53)
[2017-05-14 04:30] VITALS: BP 116/58; PULSE 58; RESP 18; TEMP 97.9; O2SAT 97
--- NOTE | 2017-05-14 06:56 | PD.ORT.PN ---
Subjective Post Op Day #: 2 Subjective Remarks He is doing well. He has very little pain. He indicates that he will go home with home health care. Range of Motion 0 extension to 100 of flexion. Distance Walked 40 feet in the morning and 200 feet in the afternoon. Objective Vitals Vital Signs Date Time Temp Pulse Resp B/P (MAP) Pulse Ox O2 Delivery O2 Flow Rate FiO2 05/14/17 04:30 97.9 58 18 116/58 (77) 97 05/13/17 23:40 98.9 67 18 160/72 (101) 94 05/13/17 19:20 99.0 75 18 138/68 (91) 92 05/13/17 17:34 18 05/13/17 16:29 18 05/13/17 16:00 98.8 76 18 148/69 (95) 94 05/13/17 12:00 99.0 76 18 134/67 (89) 95 05/13/17 08:00 97.8 59 18 121/65 (83) 95 I/O 05/13/17 05/13/17 05/13/17 05/14/17 05/14/17 05/14/17 07:00 15:00 23:00 07:00 15:00 23:00 Intake Total 750 ml 360 ml 480 ml Output Total 250 ml 200 ml 10 ml Balance -250 ml 550 ml 350 ml 480 ml Intake Oral 750 ml 360 ml 480 ml Output Urine Total 250 ml Drainage Total 200 ml 10 ml # Voids 1 3 2 2 # Bowel Movements 0 0 0 0 Result Diagram: 05/13/17 0410 Imaging Last 24 hours Impressions Knee X-Ray 05/12/17 0658 Signed Impressions: Service Date/Time: Friday, May 12, 2017 10:38 - CONCLUSION: Status post total knee arthroplasty. Dannie Villalobos MD Procedures Revision of left partial knee replacement ([employer]omet Gonzales) to total knee replacement with Nanette Triathlon prosthesis (uncemented) on 05/12/2017. Objective Remarks He is resting comfortably, supine in bed, in the CPM. The neurovascular status is intact. The dressing is dry and intact. Assessment & Plan Ortho Post Op Day #: 2 Problem List: (1) Status post total left knee replacement ICD Codes: Z96.652 - Presence of left artificial knee joint Plan: Continue postop care and PT. (2) Primary osteoarthritis of left knee ICD Codes: M17.12 - Unilateral primary osteoarthritis, left knee Status: Resolved (3) Prosthetic knee implant failure ICD Codes: T84.018A - Broken internal joint prosthesis, other site, initial encounter; Z96.659 - Presence of unspecified artificial knee joint Status: Resolved Assessment and Plan Condition: Good. Orthopedically stable. DVT prophylaxis: Sequentials, POLINA stockings, aspirin 81 mg twice daily. Discharge plans: Home with home health care. An appointment was scheduled through the office. Prescriptions: [place] 7.5/325 Ady Ruvalcaba MD (Charles) May 14, 2017 06:56
[2017-05-14] MEDS ORDERED: WALKER WHEELS/F1 MIS (07:18)
[2017-05-14] MEDS ORDERED: BEDSIDE COMMODE1 MI1 (07:18)
[2017-05-14] MEDS: ATORVASTATIN 40 MG TAB PO SCH (07:32)
[2017-05-14] MEDS: ASPIRIN EC 81 MG TABEC PO SCH (07:32)
[2017-05-14] MEDS: FINASTERIDE 5 MG TAB PO SCH (07:32)
[2017-05-14] MEDS: CELECOXIB 100 MG CAP PO SCH (07:32)
[2017-05-14] MEDS: PANTOPRAZOLE SOD 40 MG DELAYED RELEASE TAB PO SCH (07:32)
[2017-05-14] MEDS: DOCUSATE SODIUM 100 MG CAP PO SCH (07:32)
[2017-05-14 08:00] VITALS: BP_SYST 66; PULSE 56; RESP 18; TEMP 97.4; O2SAT 92
[2017-05-14] MEDS: LACTATED RINGER'S 1000 ML INJ 1,000 ML IV SCH (08:58)
[2017-05-14] MEDS: METHOCARBAMOL 500 MG TAB PO SCH (09:00)
[2017-05-14 12:00] VITALS: BP 121/59; PULSE 68; RESP 18; TEMP 97.8; O2SAT 94
[2017-05-14 13:20] LABS: HEMATOCRIT 29.1 % (39.0-51.0)
== END 2017-05-14 13:47 | disposition home health service (06) | DRG 467 ==
LOC: HSDC 05:12 → HSDI 06:59 → EDSTATUS 10:00 → N06B 19:01
PROVIDERS: ADMIT Orthopaedic Surgery; ATTEND Orthopaedic Surgery
PROC: 0SPD0JZ Removal of Synthetic Substitute from Left Knee Joint, Open Approach (ICD-10-PCS; 2017-05-12)
PROC: 3E0T3BZ Introduction of Anesthetic Agent into Peripheral Nerves and Plexi, Percutaneous Approach (ICD-10-PCS; 2017-05-12)
PROC: 0SRD0JA Replacement of Left Knee Joint with Synthetic Substitute, Uncemented, Open Approach (ICD-10-PCS; principal; 2017-05-12 06:40)
DX: M17.0 Bilateral primary osteoarthritis of knee (principal); T84.033A Mechanical loosening of internal left knee prosthetic joint, initial encounter; E78.5 Hyperlipidemia, unspecified; M25.762 Osteophyte, left knee; K21.9 Gastro-esophageal reflux disease without esophagitis; N40.0 Benign prostatic hyperplasia without lower urinary tract symptoms; Y83.8 Other surgical procedures as the cause of abnormal reaction of the patient, or of later complication, without mention of misadventure at the time of the procedure
CPT/HCPCS: 73560; 85014; 85018; 87015; 87070; 87102; 87116; 87205; 87206; 94150; C1776; C9290; J0690; J1580; J1885; J2250; J2270; J7120